=== PATIENT | male | born 1965 | race Caucasian/White ===

== ENCOUNTER 2018-11-17 11:54 | Emergency (ER) | payer BC ==
[2018-11-17 12:15] VITALS: RESP 18
--- NOTE | 2018-11-17 12:28 | ED ---
General Adult HPI - General Chief complaint: Back Pain/Injury Stated complaint: back pain Time Seen by Provider: 11/17/18 12:21 Source: patient, RN notes reviewed Mode of arrival: ambulatory Limitations: no limitations - History of Present Illness Initial comments: 53-year-old male with a past medical history of hyperlipidemia, hypertension presents to the emergency department for a chief complaint of left sciatic pain. Patient states that 3 weeks ago he was lifting a heavy tub and felt a sudden pain in his left hip. Patient states that since that time he has had pain that radiates from the left buttock down to the left calf. States it is shooting in nature and was initially going down to his left thigh and is now going down his left calf. Patient states that he saw his primary care doctor for this and was put on physical therapy. Patient has done one round of physical therapy without improvement. Patient did have x-rays taken and states he has not heard that anything was abnormal. Patient denies bladder or bowel changes. Denies saddle anesthesia. Denies fevers or chills. Denies any weakness in the lower extremities. States that movement makes the pain worse and laying down and heat make the pain better. Patient has no other complaints at this time including shortness of breath, chest pain, abdominal pain, nausea or vomiting, headache, or visual changes. - Related Data Previous Rx's Medication Instructions Recorded Lidocaine 5% Patch [Lidoderm 5% 1 patch TOPICAL DAILY #5 patch 11/17/18 Patch] predniSONE 50 mg PO DAILY #5 tablet 11/17/18 Allergies Allergy/AdvReac Type Severity Reaction Status Date / Time No Known Allergies Allergy Verified 11/17/18 12:12 Review of Systems ROS Statement: Those systems with pertinent positive or pertinent negative responses have been documented in the HPI. ROS Other: All systems not noted in ROS Statement are negative. Past Medical History Past Medical History: Hyperlipidemia, Hypertension History of Any Multi-Drug Resistant Organisms: None Reported Past Surgical History: No Surgical Hx Reported Past Psychological History: No Psychological Hx Reported Smoking Status: Former smoker Past Alcohol Use History: Occasional Past Drug Use History: None Reported General Exam Limitations: no limitations General appearance: alert, in no apparent distress Head exam: Present: atraumatic, normocephalic, normal inspection Eye exam: Present: normal appearance, PERRL, EOMI. Absent: scleral icterus, conjunctival injection, periorbital swelling ENT exam: Present: normal exam, mucous membranes moist Neck exam: Present: normal inspection, full ROM. Absent: tenderness, men ingismus, lymphadenopathy Respiratory exam: Present: normal lung sounds bilaterally. Absent: respiratory distress, wheezes, rales, rhonchi, stridor Cardiovascular Exam: Present: regular rate, normal rhythm, normal heart sounds. Absent: systolic murmur, diastolic murmur, rubs, gallop, clicks GI/Abdominal exam: Present: soft, normal bowel sounds. Absent: distended, tenderness, guarding, rebound, rigid Extremities exam: Present: normal capillary refill (Capillary refill less than 2 seconds, DP pulses 2+ in the lower extremities bilaterally). Absent: full ROM (Patient able to flex left hip 90 before pain.) Back exam: Absent: vertebral tenderness Neurological exam: Present: alert, oriented X3, CN II-XII intact Psychiatric exam: Present: normal affect, normal mood Course Vital Signs 11/17/18 11/17/18 12:12 13:48 Temperature 98.2 F 97.6 F Pulse Rate 92 80 Respiratory 18 18 Rate Blood Pressure 116/65 113/68 O2 Sat by Pulse 97 97 Oximetry Medical Decision Making - Medical Decision Making 53-year-old male presents to the emergency department for chief complaint of left sided back pain and lower extremity pain. Patient states this has been ongoing for 2-3 weeks after he injured his back lifting a heavy tub. Neurovascular status intact in the left lower extremity. Exam otherwise unremar kable. Patient states pain is worsened with movement and better when lying still. Patient has had one class of physical therapy without improvement has been following with primary care for this. Patient is 89 received steroids. Patient did have x-rays and has not aware of any abnormal results. Patient was given Toradol and Solu-Medrol. I did offer patient a CAT scan of the lumbar spine however he would rather not do this and would rather follow up outpatient. States he is just here for pain relief. Patient did have significant improvement with Toradol, site Medrol, and lidocaine patch. States he is ready to go home. Patient will follow-up with Dr. Enriquez he will be given a course of steroids as well as some lidocaine patches. Directed on how to use these. Patient will return here if he has any worsening symptoms such as bladder or bowel changes, saddle anesthesia, or weakness in the lower extremities. Patient ambulatory on discharge. Disposition Clinical Impression: Sciatic leg pain Disposition: HOME SELF-CARE Condition: Good Instructions (If sedation given, give patient instructions): Sciatica (ED) Additional Instructions: Take steroid as directed. Be sure to take food when taking steroid. Please follow up with primary care in 1-2 days. Follow-up with orthopedics as well. Return here to the emergency department if you have any worsening symptoms such as bladder or bowel changes, numbness in her groin her buttock, or weakness in the lower extremities. Prescriptions: Lidocaine 5% Patch [Lidoderm 5% Patch] 1 patch TOPICAL DAILY #5 patch predniSONE 50 mg PO DAILY #5 tablet Is patient prescribed a controlled substance at d/c from ED?: No Referrals: Nonstaff,Physician [Primary Care Provider] - 1-2 days Lucius Enriquez DO [Doctor of Osteopathic Medicine] - 1-2 days Time of Disposition: 13:43
[2018-11-17] MEDS ORDERED: methylPREDNISolone SOD SUCCI 125 MG/2 ML VIAL IM ONE (12:38)
[2018-11-17] MEDS ORDERED: KETOROLAC 30 MG/ML 1 ML VIAL IM STA (12:38)
[2018-11-17] MEDS ORDERED: LIDOCAINE 5% PATCH TOPICAL STA (12:45)
[2018-11-17 13:58] VITALS: BP 113/68; PULSE 80; TEMP 97.6
== END 2018-11-17 13:50 | disposition home or self-care (01) ==
LOC: EC 11:54
DX: M54.32 Sciatica, left side (principal); Z87.891 Personal history of nicotine dependence; Z86.39 Personal history of other endocrine, nutritional and metabolic disease; Z86.79 Personal history of other diseases of the circulatory system
CPT/HCPCS: 99283; 96372 ×2; J2930; J1885

== ENCOUNTER → 2023-12-26 | Outpatient (CLI) | payer BC ==
--- NOTE | 2023-12-27 07:40 | XR ---
EXAMINATION TYPE: XR cervical spine comp DATE OF EXAM: 12/26/2023 COMPARISON: NONE HISTORY: Pain TECHNIQUE: Four views are submitted. FINDINGS: The odontoid is intact. There are no compression deformities. The prevertebral soft tissue structur es are within normal limits. Moderate to severe hypertrophic and degenerative changes with posterior spondylosis C4-5, C5-6 and C6-C7. There is foraminal encroachment involving the lower cervical spine by bilaterally. IMPRESSION: 1. Multilevel moderate to severe degenerative disc disease.
== END | disposition home or self-care (01) ==
LOC: RADXRMAIN 15:30
PROVIDERS: ATTEND Family Medicine
DX: M50.10 Cervical disc disorder with radiculopathy, unspecified cervical region (principal)
CPT/HCPCS: 72050